=== PATIENT | female | born 1950 | race Caucasian/White ===

== ENCOUNTER 2016-11-21 11:36 | Inpatient (IN) | payer OTHER ==
[~2016-11-21] VITALS: Ht 152.4 cm; Wt 62.3 kg
[~2016-11-21 11:36] MED LIST: ACIPHEX20 MG PO; ADVAIR 250/501 DISK IH; ADVAIR 500/501 DISK IH; ALPRAZOLAM0.25 MG PO; AMBIEN10 M1 PO; AMBIEN10 MG PO; ASPIRIN81 M1 PO; ATIVAN0.5 MG PO; CELEBREX200 MG PO; CIPRO250 MG PO; COMBIVENT RESPIM4 GM IH; CYMBALTA60 MG PO; DESYREL100 MG PO; ERGOCALCIF50000 UNIT PO; ESCITALOPRAM OX10 MG PO; KENALOG,ARISTOC15 G2 TP; LEVAQUIN500 MG PO; LEVAQUIN750 MG PO; LIPITOR20 MG PO; LORAZEPAM0.5 MG PO; LOVASTATIN20 MG PO; LOW DOSE ASPIRI81 M1 PO; NAPROSYN500 MG PO; NEXIUM40 MG PO; PREDNISONE10 MG PO; PREDNISONE20 MG PO; PREDNISONE50 MG PO; PROAIR HFA8.5 GM IH; PROTONIX40 MG PO; SERTRALINE HCL100 MG PO; SERTRALINE HCL50 MG PO; SINGULAIR10 MG PO; SPIRIVA RESPIMAT4 GM IH; SPIRIVA1 INHALATI IH; TEMAZEPAM30 MG PO; TRAMADOL HCL50 MG PO; TRAZODONE HCL100 MG PO; TRAZODONE HCL150 MG PO; TRAZODONE HCL300 MG PO; VALIUM2 MG PO; VENTOLIN5 MG/1 ML IH; VOLTAREN 1% GE100 GM TP; ZITHROMAX Z-PA250 MG PO; ZOLOFT50 MG PO
[2016-11-21 12:57] LABS: HEMATOCRIT 39.2 % (36.0-46.0); MCH 28.8 PG (29.0-34.0); MCHC 32.4 G/DL (30.0-36.0); MCV 88.9 FL (83-99); MEAN PLAT.VOLUME 9.8 uM^3 (9.5-12.4); PLATELET COUNT 240 K/uL (156-360); RBC DIS.WIDTH-CV 12.3 % (11.8-14.6); RBC DIS.WIDTH-SD 40.4 % (39-53); RED BLOOD COUNT 4.41 M/uL (3.80-5.20)
[2016-11-21 13:07] LABS: CHLORIDE 100 mEq/L (99-109); SODIUM 141 mEq/L (136-147)
[2016-11-21 13:09] LABS: GLUCOSE 119 mg/dL (70-99)
[2016-11-21 13:10] LABS: ANION GAP 12 MEQ/L (2-14)
[2016-11-21 13:10] LABS: WHITE BLOOD COUNT 8.8 K/uL (4.1-10.2)
[2016-11-21 13:13] LABS: GFR ESTIMATE (CALCULATED) > 59 mL/min/
[2016-11-21 13:14] LABS: UREA NITROGEN (BUN) 11 mg/dL (9-23)
[2016-11-21] MEDS ORDERED: SPIRIVA1 INHALATI IH (15:50)
[2016-11-21] MEDS ORDERED: SERTRALINE HCL100 MG PO (15:51)
[2016-11-21] MEDS ORDERED: ROXICODONE5 MG PO (15:52)
[2016-11-21 16:40] VITALS: BP 116/66
[2016-11-21 19:35] VITALS: BP 139/65
[2016-11-21 20:05] LABS: ADD MIUA? YES; BILIRUBIN NEGATIVE; BLOOD SMALL; COLOR YELLOW ((YELLOW)); GLUCOSE (STRIP) 50; KETONES NEGATIVE; LEUKOCYTES NEGATIVE; NITRITE NEGATIVE; PROTEIN (STRIP) NEGATIVE; SPECIFIC GRAVITY 1.012 (1.000-1.030); UROBILINOGEN 0.2 MG/DL (0.2-1.0)
[2016-11-21 20:15] LABS: BACTERIA NONE SEEN /HPF; EPITHELIAL CELLS RARE /HPF; MUCUS NONE SEEN /LPF; RED BLOOD CELLS 0-5 /HPF (0-5); UCUL ADDED? NO; WHITE BLOOD CELLS 0-5 /HPF (0-5)
[2016-11-21 23:25] VITALS: BP 133/63
[2016-11-22 03:16] VITALS: BP 148/73
[2016-11-22 07:52] LABS: MCH 29.1 PG (29.0-34.0); MCHC 32.9 G/DL (30.0-36.0); MCV 88.6 FL (83-99); PLATELET COUNT 205 K/uL (156-360); RBC DIS.WIDTH-SD 39.3 % (39-53); RED BLOOD COUNT 3.95 M/uL (3.80-5.20)
[2016-11-22 08:12] VITALS: BP 154/76
[2016-11-22 08:14] LABS: ANION GAP 9 MEQ/L (2-14); CHLORIDE 103 MEQ/L (99-109); POTASSIUM 4.4 MEQ/L (3.7-5.4); SAMPLE HEMOLYSIS CHECK 0; SAMPLE ICTERIC CHECK 0; SAMPLE LIPEMIA CHECK 0; SODIUM 141 MEQ/L (136-147); TOTAL BILIRUBIN 0.3 MG/DL (0.0-1.0)
[2016-11-22 08:20] LABS: ALKALINE PHOSPHATASE 74 IU/L (3-129); GFR ESTIMATE (CALCULATED) > 59 mL/min/; GLUCOSE 177 mg/dL (70-99); UREA NITROGEN (BUN) 9 mg/dL (9-23)
[2016-11-22 11:07] VITALS: BP 150/77
[2016-11-22 15:50] VITALS: BP 152/76
[2016-11-22 19:25] VITALS: BP 138/79
[2016-11-22 23:22] VITALS: BP 121/64
[2016-11-23 03:19] VITALS: BP 139/64
[2016-11-23 08:00] VITALS: BP 147/71
[2016-11-23 11:38] VITALS: BP 165/83
[2016-11-23 15:53] VITALS: BP 165/83
[2016-11-23 19:30] VITALS: BP 146/68
[2016-11-23 23:34] VITALS: BP 142/72
[2016-11-24 03:40] VITALS: BP 144/82
[2016-11-24 07:50] VITALS: BP 159/87
[2016-11-24 16:00] VITALS: BP 136/84
[2016-11-24 20:27] VITALS: BP 157/73
[2016-11-25] VITALS: BP 136/68
[2016-11-25 04:59] VITALS: BP 138/74
[2016-11-25 07:02] VITALS: BP 180/84
[2016-11-25 16:08] VITALS: BP 150/79
[2016-11-25 20:00] VITALS: BP 166/80
[2016-11-26] VITALS: BP 162/83
[2016-11-26 07:20] VITALS: BP 151/83
[2016-11-26 07:22] LABS: HEMATOCRIT 31.4 % (36.0-46.0); MCHC 32.5 G/DL (30.0-36.0); MCV 89.2 FL (83-99); MEAN PLAT.VOLUME 10.4 uM^3 (9.5-12.4); PLATELET COUNT 215 K/uL (156-360); RBC DIS.WIDTH-CV 12.4 % (11.8-14.6); RED BLOOD COUNT 3.52 M/uL (3.80-5.20)
[2016-11-26 07:39] LABS: WHITE BLOOD COUNT 9.9 K/uL (4.1-10.2)
[2016-11-26 07:47] LABS: ANION GAP 7 MEQ/L (2-14); CHLORIDE 100 MEQ/L (99-109); GFR ESTIMATE (CALCULATED) > 59 mL/min/; GLUCOSE 166 mg/dL (70-99); POTASSIUM 4.2 MEQ/L (3.7-5.4); SAMPLE HEMOLYSIS CHECK 0; SAMPLE ICTERIC CHECK 0; SAMPLE LIPEMIA CHECK 0; SODIUM 141 MEQ/L (136-147); UREA NITROGEN (BUN) 17 mg/dL (9-23)
[2016-11-26 12:54] VITALS: BP 158/80
[2016-11-26 15:15] VITALS: BP 159/86
[2016-11-26 17:55] LABS: BAND NEUTROPHILS 7.1 % (0-8.0); EOSINOPHIL ABS CT 0; INSTRUMENT ABS NEUTROPHIL CT 7.8 K/uL; LYMPHOCYTES 4.1 % (15.0-45.0)
[2016-11-26 19:06] LABS: SEG.NEUTROPHILS 83.8 % (46.0-76.0)
[2016-11-26 20:41] VITALS: BP 142/80
[2016-11-26 23:15] VITALS: BP 138/80
[2016-11-27 03:20] VITALS: BP 164/82
[2016-11-27 07:25] VITALS: BP 134/85
[2016-11-27 11:35] VITALS: BP 136/98
[2016-11-27 15:55] VITALS: BP 162/80
[2016-11-27 19:23] VITALS: BP 160/80
[2016-11-27 23:33] VITALS: BP 128/72
[2016-11-28 03:46] VITALS: BP 113/66
[2016-11-28 07:15] VITALS: BP 148/85
[2016-11-28 07:29] LABS: HEMATOCRIT 36.4 % (36.0-46.0); MCH 28.8 PG (29.0-34.0); MCHC 32.1 G/DL (30.0-36.0); MCV 89.7 FL (83-99); MEAN PLAT.VOLUME 9.8 uM^3 (9.5-12.4); PLATELET COUNT 260 K/uL (156-360); RBC DIS.WIDTH-CV 12.5 % (11.8-14.6); RBC DIS.WIDTH-SD 41.1 % (39-53); RED BLOOD COUNT 4.06 M/uL (3.80-5.20)
[2016-11-28 07:30] LABS: ANION GAP 9 MEQ/L (2-14); CHLORIDE 101 MEQ/L (99-109); GFR ESTIMATE (CALCULATED) > 59 mL/min/; GLUCOSE 180 mg/dL (70-99); POTASSIUM 4.4 MEQ/L (3.7-5.4); SAMPLE HEMOLYSIS CHECK 0; SAMPLE ICTERIC CHECK 0; SAMPLE LIPEMIA CHECK 0; SODIUM 143 MEQ/L (136-147); UREA NITROGEN (BUN) 14 mg/dL (9-23)
[2016-11-28 07:31] LABS: WHITE BLOOD COUNT 13.5 K/uL (4.1-10.2)
[2016-11-28 08:25] LABS: ABS NEUTROPHIL COUNT 11.3; ANISOCYTOSIS 1+; ATYPICAL LYMPHOCYTE 4.3 %; BAND NEUTROPHILS 4.4 % (0-8.0); EOSINOPHIL ABS CT 0; INSTRUMENT ABS NEUTROPHIL CT 10.9 K/uL; LYMPHOCYTES 4.4 % (15.0-45.0); METAMYELOCYTES 1.7 %; MICROCYTOSIS 1+; MYELOCYTES 1.7 %; PLAT.SUFFICIENCY ADEQUATE; SEG.NEUTROPHILS 79.1 % (46.0-76.0)
[2016-11-28 16:18] VITALS: BP 156/72
[2016-11-28 23:06] VITALS: BP 115/74
[2016-11-29 07:05] VITALS: BP 128/84
[2016-11-29 10:33] VITALS: BP 117/65
[2016-11-29 15:15] VITALS: BP 123/64
[2016-11-30 00:21] VITALS: BP 117/69
[2016-11-30 07:15] VITALS: BP 135/72
[2016-11-30 16:44] VITALS: BP 133/65
[2016-11-30 23:26] VITALS: BP 123/68
[2016-12-01 07:02] VITALS: BP 104/65
[2016-12-01] MEDS ORDERED: AMLODIPINE BESYL5 MG PO (14:44)
[2016-12-01] MEDS ORDERED: PREDNISONE10 MG PO (14:44)
[2016-12-01] MEDS ORDERED: PRAVASTATIN SOD40 MG PO (14:44)
== END 2016-12-01 18:27 | disposition home or self-care (01) | DRG 190 ==
LOC: EME 11:36 → 2EAST 14:30 → EDOF 14:30 → 2EAST 16:47
PROVIDERS: Internal Medicine
DX: J44.1 Chronic obstructive pulmonary disease with (acute) exacerbation (principal); J96.21 Acute and chronic respiratory failure with hypoxia; Z99.81 Dependence on supplemental oxygen; J20.9 Acute bronchitis, unspecified; E53.8 Deficiency of other specified B group vitamins; K21.9 Gastro-esophageal reflux disease without esophagitis; F41.9 Anxiety disorder, unspecified; D64.9 Anemia, unspecified; M19.90 Unspecified osteoarthritis, unspecified site; Z87.891 Personal history of nicotine dependence; F32.9 Major depressive disorder, single episode, unspecified; J44.0 Chronic obstructive pulmonary disease with (acute) lower respiratory infection; E78.5 Hyperlipidemia, unspecified; I10 Essential (primary) hypertension
CPT/HCPCS: 71020; 80048; 80053; 81003; 85025; 85027; 87070; 87205; 93005; 94640; 94640 76; 94760; 94799; 99202; 99281; 99285; J0696; J1650; J2920; J2930; J7050; J7512

== ENCOUNTER 2016-12-08 17:43 | Emergency (ER) | payer OTHER ==
[~2016-12-08] VITALS: Ht 152.4 cm; Wt 64.9 kg
[~2016-12-08 17:43] MED LIST changes: +AMLODIPINE BESYL5 MG PO; +PRAVASTATIN SOD40 MG PO; +ROXICODONE5 MG PO
[2016-12-08 18:34] LABS: HEMATOCRIT 38.3 % (36.0-46.0); MCH 28.8 PG (29.0-34.0); MCHC 32.4 G/DL (30.0-36.0); MCV 88.9 FL (83-99); MEAN PLAT.VOLUME 9.4 uM^3 (9.5-12.4); PLATELET COUNT 228 K/uL (156-360); RBC DIS.WIDTH-CV 13.6 % (11.8-14.6); RBC DIS.WIDTH-SD 44.2 % (39-53); RED BLOOD COUNT 4.31 M/uL (3.80-5.20); WHITE BLOOD COUNT 10.7 K/uL (4.1-10.2)
[2016-12-08 18:46] LABS: CHLORIDE 104 mEq/L (99-109); POTASSIUM 3.7 mEq/L (3.7-5.4); SODIUM 140 mEq/L (136-147)
[2016-12-08 18:48] LABS: GLUCOSE 98 mg/dL (70-99)
[2016-12-08 18:49] LABS: ANION GAP 12 MEQ/L (2-14)
[2016-12-08 18:52] LABS: GFR ESTIMATE (CALCULATED) > 59 mL/min/; UREA NITROGEN (BUN) 19 mg/dL (9-23)
[2016-12-08 18:54] LABS: TROP-I INTERPRETATION NEGATIVE; TROPONIN-I < 0.01 ng/mL (0.0-0.30)
[2016-12-08 20:43] LABS: TROP-I INTERPRETATION NEGATIVE; TROPONIN-I < 0.01 ng/mL (0.0-0.30)
[2016-12-08 22:41] VITALS: BP 102/75
== END 2016-12-08 22:41 | disposition home or self-care (01) ==
LOC: EME 17:43
PROVIDERS: Emergency Medicine
DX: R07.9 Chest pain, unspecified (principal); J44.9 Chronic obstructive pulmonary disease, unspecified; K21.9 Gastro-esophageal reflux disease without esophagitis; Z87.891 Personal history of nicotine dependence
CPT/HCPCS: 71020; 80048; 84484; 85027; 93005; 94640; 99281; 99285

== ENCOUNTER 2017-03-04 14:11 | Emergency (ER) | payer OTHER ==
[~2017-03-04] VITALS: Ht 152.4 cm; Wt 65.3 kg
[2017-03-04 15:49] LABS: HEMATOCRIT 40.6 % (36.0-46.0); MCH 29.2 PG (29.0-34.0); MCHC 32.8 G/DL (30.0-36.0); MEAN PLAT.VOLUME 9.8 uM^3 (9.5-12.4); PLATELET COUNT 278 K/uL (156-360); RBC DIS.WIDTH-CV 12.7 % (11.8-14.6); RBC DIS.WIDTH-SD 41.6 % (39-53); RED BLOOD COUNT 4.56 M/uL (3.80-5.20); WHITE BLOOD COUNT 10.5 K/uL (4.1-10.2)
[2017-03-04 15:59] LABS: CHLORIDE 101 mEq/L (99-109); POTASSIUM 4.1 mEq/L (3.7-5.4); SODIUM 141 mEq/L (136-147)
[2017-03-04 16:01] LABS: GLUCOSE 89 mg/dL (70-99)
[2017-03-04 16:02] LABS: ANION GAP 12 MEQ/L (2-14)
[2017-03-04 16:03] LABS: TOTAL BILIRUBIN 0.6 mg/dL (0.0-1.0)
[2017-03-04 16:04] LABS: ALKALINE PHOSPHATASE 101 IU/L (3-129); GFR ESTIMATE (CALCULATED) > 59 mL/min/
[2017-03-04 16:06] LABS: UREA NITROGEN (BUN) 18 mg/dL (9-23)
[2017-03-04 16:08] LABS: LIPASE 12 U/L (1.0-51.0)
[2017-03-04 16:26] LABS: ADD MIUA? YES; BILIRUBIN NEGATIVE; BLOOD NEGATIVE; COLOR YELLOW ((YELLOW)); GLUCOSE (STRIP) NEGATIVE; KETONES NEGATIVE; LEUKOCYTES NEGATIVE; NITRITE NEGATIVE; PROTEIN (STRIP) NEGATIVE; SPECIFIC GRAVITY 1.016 (1.000-1.030); UROBILINOGEN 0.2 MG/DL (0.2-1.0)
[2017-03-04 16:31] LABS: BACTERIA RARE /HPF; EPITHELIAL CELLS RARE /HPF; MUCUS TRACE /LPF; RED BLOOD CELLS 0-5 /HPF (0-5); UCUL ADDED? NO; WHITE BLOOD CELLS 0-5 /HPF (0-5)
[2017-03-04] MEDS ORDERED: ULTRACET1 TABLET PO (17:08)
[2017-03-04] MEDS ORDERED: CIPRO500 MG PO (17:11)
[2017-03-04] MEDS ORDERED: FLAGYL500 MG PO (17:11)
[2017-03-04] MEDS ORDERED: NORCO 5/3251 TABLET PO (17:16)
[2017-03-04 18:31] VITALS: BP 133/88
== END 2017-03-04 18:33 | disposition home or self-care (01) ==
LOC: EME 14:11
DX: K57.32 Diverticulitis of large intestine without perforation or abscess without bleeding (principal); K86.1 Other chronic pancreatitis; J44.9 Chronic obstructive pulmonary disease, unspecified; K21.9 Gastro-esophageal reflux disease without esophagitis; F32.9 Major depressive disorder, single episode, unspecified; Z88.0 Allergy status to penicillin; Z88.1 Allergy status to other antibiotic agents; Z87.891 Personal history of nicotine dependence
CPT/HCPCS: 74177; 80053; 81003; 83690; 85027; 99281; 99283; J2270; J2405; J7030

== ENCOUNTER 2018-01-26 11:33 | Emergency (ER) | payer OTHER ==
[~2018-01-26] VITALS: Ht 152.4 cm; Wt 64.5 kg
[~2018-01-26 11:33] MED LIST changes: +CIPRO500 MG PO; +FLAGYL500 MG PO; +NORCO 5/3251 TABLET PO; +ULTRACET1 TABLET PO
[2018-01-26 12:14] LABS: BASOPHIL (%) 0.5 % (0-1); EOSINOPHIL (%) 0.6 % (0-5); HEMATOCRIT 40.1 % (36.0-46.0); HEMOGLOBIN 13.4 G/DL (11.9-15.5); IMMATURE GRANULOCYTE (%) 0.3 % (0.0-0.7); LYMPHOCYTE (%) 19.9 % (15-42); LYMPHOCYTE COUNT 1.3 K/uL (1.0-2.8); MCH 29.8 PG (29.0-34.0); MCHC 33.4 G/DL (30.0-36.0); MCV 89.3 FL (83-99); MONOCYTE (%) 6.2 % (3-12); MONOCYTE COUNT 0.4 K/uL (0-0.8); NEUTROPHIL (%) 72.5 % (45-76); NEUTROPHIL COUNT 4.8 K/uL (1.8-6.4); PLATELET COUNT 196 K/uL (156-360); RBC DIS.WIDTH-CV 12.7 % (11.8-14.6); RBC DIS.WIDTH-SD 41.8 % (39-53); RED BLOOD COUNT 4.49 M/uL (3.80-5.20); WHITE BLOOD COUNT 6.6 K/uL (4.1-10.2)
[2018-01-26 12:23] LABS: PTT 29.8 SEC (25-37)
[2018-01-26 12:27] LABS: CHLORIDE 103 mEq/L (99-109); POTASSIUM 4.5 mEq/L (3.7-5.4); SODIUM 139 mEq/L (136-147)
[2018-01-26 12:28] LABS: GLUCOSE 120 mg/dL (70-99)
[2018-01-26 12:32] LABS: CREATININE 0.7 mg/dL (0.6-1.3); GFR ESTIMATE (CALCULATED) > 59 mL/min/
[2018-01-26 12:33] LABS: UREA NITROGEN (BUN) 16 mg/dL (9-23)
[2018-01-26 12:35] LABS: TROP-I INTERPRETATION NEGATIVE; TROPONIN-I < 0.01 ng/mL (0.0-0.30)
[2018-01-26] MEDS ORDERED: VENTOLIN HFA18 GM IH (14:39)
[2018-01-26] MEDS ORDERED: ZITHROMAX Z-PA250 MG PO (14:39)
[2018-01-26] MEDS ORDERED: PREDNISONE20 MG PO (14:39)
[2018-01-26 14:56] VITALS: BP 113/83
== END 2018-01-26 15:05 | disposition home or self-care (01) ==
LOC: EME 11:33
PROVIDERS: Emergency Medicine
DX: J44.1 Chronic obstructive pulmonary disease with (acute) exacerbation (principal); F17.200 Nicotine dependence, unspecified, uncomplicated; K21.9 Gastro-esophageal reflux disease without esophagitis; F41.9 Anxiety disorder, unspecified; F32.9 Major depressive disorder, single episode, unspecified; R56.9 Unspecified convulsions; Z79.82 Long term (current) use of aspirin; Z79.51 Long term (current) use of inhaled steroids; Z87.19 Personal history of other diseases of the digestive system; Z88.0 Allergy status to penicillin; Z91.09 Other allergy status, other than to drugs and biological substances
CPT/HCPCS: 71046; 80048; 84484; 85025; 85610; 85730; 93005; 94640; 99281; 99285; J2930